=== PATIENT | male | born 1955 | race Caucasian/White ===

== ENCOUNTER → 2024-04-22 | Outpatient (CLI) | payer OTHER, MEDICAID, SELFPAY ==
[2024-04-22 08:39] LABS: Basophils # (Auto) 0.1 Thou/mm3 (0.0-0.2); Basophils % (Auto) 1 % (0-2.5); Eosinophils # (Auto) 0.4 Thou/mm3 (0.0-0.5); Eosinophils % (Auto) 5 % (0-10); Hematocrit 46.7 % (41.0-53.0); Hemoglobin 15.8 g/dL (13.5-16.0); Immature Granulocytes % (Auto) 1 % (0-0); Immature Granulocytes Auto 0.06 Thou/mm3 (0.00-0.00); Lymphocytes # (Auto) 1.7 Thou/mm3 (1.0-4.8); Lymphocytes % (Auto) 26 % (10-50); Mean Corpuscular HGB Conc 33.8 g/dl (31.0-37.0); Mean Corpuscular Volume 92 fL (80-100); Monocytes # (Auto) 0.8 Thou/mm3 (0.0-0.8); Monocytes % (Auto) 11 % (0-12); Neutrophils # (Auto) 3.8 Thou/mm3 (1.8-7.7); Neutrophils % (Auto) 56 % (37-80); Nucleated Red Blood Cell % 0 /100 WBC (0); Platelet Count 86 Thou/mm3 (140-440); RDW Standard Deviation 44.2 fL (35.1-43.9); White Blood Count 6.7 Thou/mm3 (3.8-10.6)
[2024-04-22 08:45] LABS: Glucose Estimated Average 140 mg/dL (80-131); Hemoglobin A1C 6.5 % Hgb (4.8-6.0)
[2024-04-22 08:48] LABS: Alanine Aminotransferase 18 U/L (10-49); Albumin, Serum 4.9 gm/dL (3.4-4.8); Albumin/Globulin Ratio 1.8 (1.2-2.2); Alkaline Phosphatase 62 U/L (46-116); Anion Gap 8 (7-16); Aspartate Amino Transferase 22 U/L (0-34); BUN/Creatinine Ratio 17 Ratio (12-20); Bilirubin,Total 0.4 mg/dL (0.3-1.2); Blood Urea Nitrogen 20 mg/dL (9-23); Carbon Dioxide 27.9 mMol/L (20.0-31.0); Cardiac Risk Estimate 3.7 RATIO (4.0-6.7); Chloride 104 mMol/L (98-107); Cholesterol 129 mg/dL (132-200); Creatinine (Component) 1.2 mg/dL (0.6-1.3); Globulin 2.7 gm/dL (2.3-3.5); Glucose 104 mg/dL (74-106); HDL Cholesterol 35 mg/dL (40-60); LDL Cholesterol,Calculated 53 mg/dL (0-130); Osmolality,Calculated 282 (275-295); Potassium 4.7 mMol/L (3.4-5.1); Sodium 140 mMol/L (136-145); Total Protein 7.6 gm/dL (5.7-8.2); Triglycerides 204 mg/dL (30-150); eGFR > 60 See Note
[2024-04-22 08:52] LABS: Folate 7.68 ng/mL (>5.38); Vitamin B12 940 pg/mL (211-911)
== END | disposition home or self-care (01) ==
LOC: COPL 07:31
PROVIDERS: PCP Internal Medicine; Referring Provider Student in an Organized Health Care Education/Training Program; Visit Provider Student in an Organized Health Care Education/Training Program
DX: E11.65 Type 2 diabetes mellitus with hyperglycemia (principal); E11.40 Type 2 diabetes mellitus with diabetic neuropathy, unspecified; I10 Essential (primary) hypertension; E55.9 Vitamin D deficiency, unspecified
CPT/HCPCS: 36415; 80053; 80061; 82306; 82607; 82746; 83036; 85025

== ENCOUNTER → 2024-09-17 | Outpatient (CLI) | payer OTHER, MEDICAID, SELFPAY ==
[2024-09-17 07:24] LABS: Misc Send Out* See Sep Rpt
[2024-09-17 07:35] LABS: Collection Type, Urine Clean Catch; Squamous Epithelial Cell,Urine 0 /hpf (0-5)
[2024-09-17 08:23] LABS: Basophils # (Auto) 0.1 Thou/mm3 (0.0-0.2); Basophils % (Auto) 1 % (0-2.5); Eosinophils # (Auto) 0.2 Thou/mm3 (0.0-0.5); Eosinophils % (Auto) 3 % (0-10); Hematocrit 46.9 % (41.0-53.0); Hemoglobin 15.5 g/dL (13.5-16.0); Immature Granulocytes Auto 0.02 Thou/mm3 (0.00-0.00); Lymphocytes # (Auto) 1.7 Thou/mm3 (1.0-4.8); Lymphocytes % (Auto) 32 % (10-50); Mean Corpuscular HGB Conc 33.0 g/dl (31.0-37.0); Mean Corpuscular Hemoglobin 31.6 pg (25.0-35.0); Mean Corpuscular Volume 96 fL (80-100); Monocytes # (Auto) 0.7 Thou/mm3 (0.0-0.8); Monocytes % (Auto) 13 % (0-12); Neutrophils # (Auto) 2.7 Thou/mm3 (1.8-7.7); Neutrophils % (Auto) 51 % (37-80); Nucleated Red Blood Cell # 0.00 Thou/mm3 (0.00-0.00); Nucleated Red Blood Cell % 0 /100 WBC (0); Platelet Count 90 Thou/mm3 (140-440); RDW Standard Deviation 47.4 fL (35.1-43.9); Red Blood Count 4.90 Miln/mm3 (4.50-5.90); White Blood Count 5.3 Thou/mm3 (3.8-10.6)
[2024-09-17 08:30] LABS: Bilirubin,Urine Negative (Negative); Blood,Urine Negative (Negative); Clarity,Urine Clear (Clear/Hazy); Color,Urine Yellow (Lt Yel-Yel); Glucose, Urine 4+ (Negative); Ketones,Urine Negative (Negative); Leukocyte Esterase,Urine Negative (Negative); Nitrite,Urine Negative (Negative); PH,Urine 6.0 (5.0-7.0); Protein,Urine Negative (Neg - Trace); RBC,Urine < 1 /hpf (0-3); Specific Gravity,Urine 1.024 (1.001-1.035); Urobilinogen,Urine Negative mg/dL (0.0-1.0); WBC,Urine 1 /hpf (0-5)
[2024-09-17 08:31] LABS: Glucose Estimated Average 128 mg/dL (80-131); Hemoglobin A1C 6.1 % Hgb (4.8-6.0)
[2024-09-17 08:35] LABS: Vitamin D 25 Hydroxy Total 57.0 ng/mL (7.3-40.2)
[2024-09-17 08:46] LABS: Alanine Aminotransferase 11 U/L (10-49); Albumin, Serum 4.8 gm/dL (3.4-4.8); Albumin/Globulin Ratio 1.7 (1.2-2.2); Alkaline Phosphatase 50 U/L (46-116); Anion Gap 10 (7-16); Aspartate Amino Transferase 20 U/L (0-34); BUN/Creatinine Ratio 11 Ratio (12-20); Bilirubin,Total 0.5 mg/dL (0.3-1.2); Blood Urea Nitrogen 16 mg/dL (9-23); Calcium 9.7 mg/dL (8.3-10.6); Calcium (Corrected) 9.7 mg/dL (8.5-10.1); Carbon Dioxide 28.1 mMol/L (20.0-31.0); Cardiac Risk Estimate 3.5 RATIO (4.0-6.7); Chloride 104 mMol/L (98-107); Cholesterol 131 mg/dL (132-200); Creatinine (Component) 1.5 mg/dL (0.6-1.3); Globulin 2.8 gm/dL (2.3-3.5); Glucose 117 mg/dL (74-106); HDL Cholesterol 37 mg/dL (40-60); LDL Cholesterol,Calculated 72 mg/dL (0-130); Osmolality,Calculated 285 (275-295); Potassium 4.7 mMol/L (3.4-5.1); Sodium 142 mMol/L (136-145); Thyroid Stimulating Hormone 2.57 uIU/mL (0.55-4.78); Total Protein 7.6 gm/dL (5.7-8.2); Triglycerides 109 mg/dL (30-150); eGFR 50 See Note
[2024-09-17 08:51] LABS: Creatinine MALB Rnd Ur 97 mg/dL (30-125); Microalbumin Creat Ratio 5 mg/gCrea (<30); Microalbumin, Random Urine 5 mg/L (0-300)
[2024-09-17 09:08] LABS: Hepatitis B Core Antibody IgM Non Reactive (Non React); Hepatitis B Surface Ab NonReact(Not Immune) (Immune); Hepatitis B Surface Antigen Non Reactive (Non React)
[2024-09-22 10:55] LABS: HIV Ag/Ab, 4th Gen NON-REACTIVE
== END | disposition home or self-care (01) ==
LOC: COPL 07:04
DX: Z00.00 Encounter for general adult medical examination without abnormal findings (principal); R80.9 Proteinuria, unspecified; Z11.59 Encounter for screening for other viral diseases; Z11.4 Encounter for screening for human immunodeficiency virus [HIV]; Z79.899 Other long term (current) drug therapy
CPT/HCPCS: 36415; 80053; 80061; 81001; 82043; 82306; 82570; 83036; 84443; 85025; 86705; 86706; 87340; 87389

== ENCOUNTER → 2024-11-12 | Outpatient (CLI) | payer OTHER, MEDICAID, SELFPAY ==
[2024-11-12 08:33] LABS: Basophils # (Auto) 0.1 Thou/mm3 (0.0-0.2); Basophils % (Auto) 1 % (0-2.5); Eosinophils # (Auto) 0.2 Thou/mm3 (0.0-0.5); Eosinophils % (Auto) 4 % (0-10); Hematocrit 45.9 % (41.0-53.0); Hemoglobin 15.2 g/dL (13.5-16.0); Immature Granulocytes Auto 0.02 Thou/mm3 (0.00-0.00); Lymphocytes # (Auto) 1.7 Thou/mm3 (1.0-4.8); Lymphocytes % (Auto) 33 % (10-50); Mean Corpuscular HGB Conc 33.1 g/dl (31.0-37.0); Mean Corpuscular Hemoglobin 31.6 pg (25.0-35.0); Mean Corpuscular Volume 95 fL (80-100); Monocytes # (Auto) 0.7 Thou/mm3 (0.0-0.8); Monocytes % (Auto) 13 % (0-12); Neutrophils # (Auto) 2.6 Thou/mm3 (1.8-7.7); Neutrophils % (Auto) 49 % (37-80); Nucleated Red Blood Cell # 0.00 Thou/mm3 (0.00-0.00); Nucleated Red Blood Cell % 0 /100 WBC (0); RDW Standard Deviation 46.0 fL (35.1-43.9); Red Blood Count 4.81 Miln/mm3 (4.50-5.90); White Blood Count 5.2 Thou/mm3 (3.8-10.6)
[2024-11-12 08:44] LABS: Glucose Estimated Average 120 mg/dL (80-131); Hemoglobin A1C 5.8 % Hgb (4.8-6.0)
[2024-11-12 08:45] LABS: Creatinine MALB Rnd Ur 107 mg/dL (30-125); Microalbumin Creat Ratio 8 mg/gCrea (<30); Microalbumin, Random Urine 9 mg/L (0-300)
[2024-11-12 08:59] LABS: Alanine Aminotransferase 13 U/L (10-49); Albumin, Serum 5.0 gm/dL (3.4-4.8); Albumin/Globulin Ratio 2.0 (1.2-2.2); Alkaline Phosphatase 51 U/L (46-116); Anion Gap 10 (7-16); Aspartate Amino Transferase 19 U/L (0-34); BUN/Creatinine Ratio 11 Ratio (12-20); Bilirubin,Total 0.6 mg/dL (0.3-1.2); Blood Urea Nitrogen 16 mg/dL (9-23); Calcium 10.3 mg/dL (8.3-10.6); Calcium (Corrected) 10.3 mg/dL (8.5-10.1); Carbon Dioxide 27.5 mMol/L (20.0-31.0); Cardiac Risk Estimate 2.8 RATIO (4.0-6.7); Chloride 104 mMol/L (98-107); Cholesterol 122 mg/dL (132-200); Creatinine (Component) 1.4 mg/dL (0.6-1.3); Globulin 2.5 gm/dL (2.3-3.5); Glucose 114 mg/dL (74-106); HDL Cholesterol 44 mg/dL (40-60); LDL Cholesterol,Calculated 58 mg/dL (0-130); Osmolality,Calculated 283 (275-295); Platelet Count 38 Thou/mm3 (140-440); Potassium 4.6 mMol/L (3.4-5.1); Sodium 141 mMol/L (136-145); Total Protein 7.5 gm/dL (5.7-8.2); Triglycerides 101 mg/dL (30-150); eGFR 55 See Note
== END | disposition home or self-care (01) ==
LOC: COPL 06:53
PROVIDERS: PCP Internal Medicine
DX: E11.9 Type 2 diabetes mellitus without complications (principal); E78.5 Hyperlipidemia, unspecified; I10 Essential (primary) hypertension; Z79.899 Other long term (current) drug therapy
CPT/HCPCS: 36415; 80053; 80061; 82043; 82570; 83036; 85025

== ENCOUNTER → 2024-11-26 | Outpatient (CLI) | payer OTHER, MEDICAID, SELFPAY ==
[2024-11-26 08:07] LABS: Collection Type, Urine Clean Catch; Squamous Epithelial Cell,Urine 0 /hpf (0-5)
[2024-11-26 09:01] LABS: Bilirubin,Urine Negative (Negative); Blood,Urine Negative (Negative); Clarity,Urine Clear (Clear/Hazy); Color,Urine Lt-Yellow (Lt Yel-Yel); Glucose, Urine 4+ (Negative); Ketones,Urine Negative (Negative); Leukocyte Esterase,Urine Negative (Negative); Nitrite,Urine Negative (Negative); PH,Urine 6.0 (5.0-7.0); Protein,Urine Negative (Neg - Trace); RBC,Urine 3 /hpf (0-3); Specific Gravity,Urine 1.016 (1.001-1.035); Urobilinogen,Urine Negative mg/dL (0.0-1.0); WBC,Urine 1 /hpf (0-5)
[2024-11-26 09:03] LABS: Albumin, Serum 5.1 gm/dL (3.4-4.8); Anion Gap 8 (7-16); BUN/Creatinine Ratio 13 Ratio (12-20); Blood Urea Nitrogen 17 mg/dL (9-23); Calcium 10.0 mg/dL (8.3-10.6); Calcium (Corrected) 10.0 mg/dL (8.5-10.1); Carbon Dioxide 28.1 mMol/L (20.0-31.0); Chloride 104 mMol/L (98-107); Creatinine (Component) 1.3 mg/dL (0.6-1.3); Glucose 105 mg/dL (74-106); Osmolality,Calculated 280 (275-295); Phosphorous 3.6 mg/dL (2.4-5.1); Potassium 4.3 mMol/L (3.4-5.1); Sodium 140 mMol/L (136-145); eGFR 60 See Note
== END | disposition home or self-care (01) ==
LOC: COPL 06:57
PROVIDERS: Referring Provider Internal Medicine; Visit Provider Internal Medicine
DX: E11.9 Type 2 diabetes mellitus without complications (principal); N17.9 Acute kidney failure, unspecified
CPT/HCPCS: 36415; 80069; 81001

== ENCOUNTER → 2024-12-02 | Outpatient (CLI) | payer OTHER, MEDICAID, SELFPAY ==
--- NOTE | 2024-12-02 11:00 | XR_ITS ---
Examination: Retroperitoneal ultrasound, complete Technique: Multiple high resolution grayscale images of the retroperitoneum obtained, including kidneys and bladder. Exam date and time: December 02, 2024, 10:00 a.m. INDICATIONS: Acute renal failure on laboratory examination November 21, 2024. FINDINGS: Right kidney 12.6 cm renal cortex 1.8 cm Left kidney 11.9 cm renal cortex 2.5 cm Mild renal scar formation Mild left hydronephrosis No bladder mass or bladder calculi Bladder prevoid volume 638 cc post void volume 268 cc Prostate volume 30 cc no prostate nodules IMPRESSION: Mild renal scar formation Mild left hydronephrosis
== END | disposition home or self-care (01) ==
LOC: CDIM 10:35
PROVIDERS: Referring Provider Internal Medicine; Visit Provider Internal Medicine
DX: N28.89 Other specified disorders of kidney and ureter (principal); N13.30 Unspecified hydronephrosis; N17.9 Acute kidney failure, unspecified
CPT/HCPCS: 76770

== ENCOUNTER → 2024-12-24 | Outpatient (CLI) | payer OTHER, MEDICAID, SELFPAY ==
[2024-12-24 08:39] LABS: Basophils # (Auto) 0.0 Thou/mm3 (0.0-0.2); Basophils % (Auto) 1 % (0-2.5); Eosinophils # (Auto) 0.2 Thou/mm3 (0.0-0.5); Eosinophils % (Auto) 3 % (0-10); Hematocrit 46.5 % (41.0-53.0); Hemoglobin 15.4 g/dL (13.5-16.0); INR 1.0 (0.9-1.3); Immature Granulocytes Auto 0.03 Thou/mm3 (0.00-0.00); Immature Reticulocyte Fraction 22.6 % (2.3-13.4); Lymphocytes # (Auto) 1.7 Thou/mm3 (1.0-4.8); Lymphocytes % (Auto) 24 % (10-50); Mean Corpuscular HGB Conc 33.1 g/dl (31.0-37.0); Mean Corpuscular Hemoglobin 31.6 pg (25.0-35.0); Mean Corpuscular Volume 95 fL (80-100); Monocytes # (Auto) 0.8 Thou/mm3 (0.0-0.8); Monocytes % (Auto) 11 % (0-12); Neutrophils # (Auto) 4.4 Thou/mm3 (1.8-7.7); Neutrophils % (Auto) 61 % (37-80); Nucleated Red Blood Cell # 0.00 Thou/mm3 (0.00-0.00); Nucleated Red Blood Cell % 0 /100 WBC (0); Partial Thromboplastin Time 28.6 Seconds (22.0-36.0); Prothrombin Time 11.1 Seconds (9.0-12.2); RDW Standard Deviation 46.0 fL (35.1-43.9); Red Blood Count 4.88 Miln/mm3 (4.50-5.90); Reticulocyte % (Auto) 1.7 % (0.5-1.5); Reticulocyte Absolute Auto 83.9 Biln/L (25.0-75.0); Reticulocyte Hgb Content 38.5 pg (28.0-35.0); White Blood Count 7.1 Thou/mm3 (3.8-10.6)
[2024-12-24 08:43] LABS: Ferritin 58 ng/mL (10.5-307.3); Iron 84 mcg/dL (65-175); Percent Iron Saturation 24 % (20-55); Total Iron Binding Capacity 349 mcg/dL (250-425); Unsaturated Iron Binding 265 (225-295)
[2024-12-24 08:45] LABS: Folate 7.43 ng/mL (>5.38); Vitamin B12 506 pg/mL (211-911)
[2024-12-24 09:00] LABS: Platelet Count 171 Thou/mm3 (140-440)
[2024-12-24 14:58] LABS: RA Screen Negative (Negative)
[2024-12-29 06:40] LABS: ANA Screen, IFA NEGATIVE (NEGATIVE)
== END | disposition home or self-care (01) ==
LOC: COPL 06:55
PROVIDERS: Referring Provider Internal Medicine Hematology & Oncology; Visit Provider Internal Medicine Hematology & Oncology
DX: D69.6 Thrombocytopenia, unspecified (principal); D69.1 Qualitative platelet defects
CPT/HCPCS: 36415; 82607; 82728; 82746; 83540; 83550; 85025; 85046; 85610; 85730; 86038; 86430